=== PATIENT | male | born 2000 | race Caucasian/White ===

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

== ENCOUNTER 2020-03-14 15:01 | Emergency (ER) | payer SELFPAY ==
[2020-03-14 15:07] VITALS: BP 133/76
[2020-03-14] MEDS ORDERED: LIDOCAINE 1% INJ-PF (10 MG/ML) 30 ML SDV INJ ONE (15:15)
--- NOTE | 2020-03-14 15:18 | ER Document Report ---
HPI - HPI Patient complains to provider of: Left knee laceration Time Seen by Provider: 03/14/20 15:08 Context: 19-year-old male with no previous medical problems presents to the emergency room with a laceration to his left knee. States he was playing with a friend an d wanted to see if his friends knife with cut his pants. States while playing with a knife he cut his left knee through 2 layers of clothing cutting his knee. Bleeding is persistent. Tetanus is up-to-date. Associated Symptoms: None Exacerbated by: Movement Relieved by: Remaining still Similar symptoms previously: No Recently seen / treated by doctor: No - ROS Systems Reviewed and Negative: Yes All other systems reviewed and negative - NEURO Neurology: DENIES: Weakness - MUSCULOSKELETAL Musculoskeletal: REPORTS: Extremity pain - DERM Skin Color: Erythema Skin Problems: Laceration Past Medical History - General Information source: Patient - Social History Smoking Status: Current Every Day Smoker Frequency of alcohol use: None Drug Abuse: Marijuana Family History: Reviewed & Not Pertinent Renal/ Medical History: Denies: Hx Peritoneal Dialysis Vertical Provider Document - CONSTITUTIONAL Agree With Documented VS: Yes Exam Limitations: No Limitations General Appearance: Mild Distress - INFECTION CONTROL TRAVEL OUTSIDE OF THE [place] IN LAST 30 DAYS: No - HEENT HEENT: Atraumatic, Normocephalic - NECK Neck: Normal Inspection, Supple, Thyroid Normal - RESPIRATORY Respiratory: Breath Sounds Normal, No Respiratory Distress - CARDIOVASCULAR Cardiovascular: Regular Rate, Regular Rhythm, No Murmur - MUSCULOSKELETAL/EXTREMETIES Musculoskeletal/Extremeties: Tender - Tenderness to the left patella with a 5 cm laceration. Bleeding is persistent. Full range of motion without difficulty or pain. - NEURO Level of Consciousness: Awake, Alert, Appropriate Motor/Sensory: No Motor Deficit, No Sensory Deficit Notes: Positive left pedal pulse. Ambulatory with a steady gait. Neurovascularly intact. - DERM Integumentary: Warm, Dry, Laceration - 5 cm laceration noted to the left knee. Bleeding is persistent. Course - Re-evaluation Re-evalutation: 03/14/20 16:44 Wound was cleansed and sutured as documented. Dressing was applied. Reviewed negative x-ray results with patient. Patient requested crutches. Crutches and crutch training provided by nursing staff as documented. Patient was counseled on proper wound care. Antibiotics as prescribed. Sutures out 8 to 10 days. Patient was given strict return to the emergency room guidelines. Return for any new or worsening symptoms. All questions were answered. Patient verbalized understanding and agrees with plan of care. 03/14/20 17:31 - Vital Signs Vital signs: Temp Pulse Resp BP Pulse Ox 98.1 F 87 16 133/76 H 99 03/14/20 15:05 03/14/20 15:05 03/14/20 15:05 03/14/20 15:05 03/14/20 15:05 - Diagnostic Test Radiology reviewed: Reports reviewed Procedures - Immobilization Left Knee Time completed: 17:15 Pre-Proc Neuro Vasc Exam: Normal Immobilizer type: Crutches Performed by: PCT Post-Proc Neuro Vasc Exam: Normal Alignment checked and good: Yes - Laceration/Wound Repair Left Knee Time completed: 16:43 Wound length (cm): 5 Wound's Depth, Shape: Into muscle, Linear Laceration pre-procedure: Sterile PPE donned, Sterile drapes applied, Shur-Clens applied Anesthetic type: 1% Lidocaine Volume Anesthetic (mLs): 4 Wound explored: Clean, No foreign body removed Wound Repaired With: Sutures Suture Size/Type: 4:0, Ethilon Number of Sutures: 8 Layer Closure?: No Post-procedure wound care: Sterile dressing applied Post-procedure NV exam normal: Yes Complications: No Discharge - Discharge Clinical Impression: Laceration of left knee Qualifiers: Encounter type: initial encounter Qualified Code(s): S81.012A - Laceration without foreign body, left knee, initial encounter Condition: Stable Disposition: HOME, SELF-CARE Instructions: Laceration Care ([facility]), Prophylactic Antibiotic ([facility]) Additional Instructions: Please return to your primary doctor, the ED, or an urgent care in 8-10 days for suture removal. Return immediately if you develop spreading redness around the wound, pus from the wound, worsening pain, or a fever of >100.4. Keep the area clean and dry. Remove dressing in 24 hours. Leave wound open to air as much as possible after removing the dressing. Keep it covered while at work. Prescriptions: Cephalexin Monohydrate [Keflex 500 mg Capsule] 500 mg PO Q8H 10 Days #30 capsule Forms: Return to Work
--- NOTE | 2020-03-14 16:14 | RADIOLOGY REPORT (SQ) ---
EXAM DESCRIPTION: KNEE LEFT 4 VIEW IMAGES COMPLETED DATE/TIME: 03/14/2020 3:40 pm REASON FOR STUDY: injury COMPARISON: None. NUMBER OF VIEWS: Four views. TECHNIQUE: AP, lateral, and both oblique radiographic images acquired of the left knee. LIMITATIONS: External bandage. FINDINGS: MINERALIZATION: Normal. BONES: No acute fracture or dislocation. No worrisome bone lesions. JOINT: No effusion. SOFT TISSUES: No soft tissue swelling. No radio-opaque foreign body. OTHER: No other significant finding. IMPRESSION: NEGATIVE STUDY OF THE LEFT KNEE. NO RADIOGRAPHIC EVIDENCE OF ACUTE INJURY. TECHNICAL DOCUMENTATION: JOB ID: [id number] 2010 [employer]- All Rights Reserved Reading location - IP/workstation name: [email or web address]
== END 2020-03-14 17:20 | disposition home or self-care (01) ==
LOC: ER 15:01
DX: S86.922A Laceration of unspecified muscle(s) and tendon(s) at lower leg level, left leg, initial encounter (principal); S91.012A Laceration without foreign body, left ankle, initial encounter; W26.0XXA Contact with knife, initial encounter; Y93.89 Activity, other specified; F17.200 Nicotine dependence, unspecified, uncomplicated
CPT/HCPCS: 99283

== ENCOUNTER 2020-04-02 11:21 | Emergency (ER) | payer SELFPAY ==
--- NOTE | 2020-04-02 13:09 | ER Document Report ---
HPI - HPI Time Seen by Provider: 04/02/20 12:53 Notes: 19-year-old male presents to the emergency room for evaluation of a laceration that he sustained to his left knee approximately 2 weeks ago. Reports he had sutures placed but he removed the sutures himself. Reports a friend of the family looked at his knee and said it was infected today. Denies any recent injury to his knee. Did receive his last tetanus in the last 5 years. Reports pain is 1 out of 5, dull ache. Has not tried any [id number]-penjcvk medications. Has not tried any heat or icing. Denies any previous injury. Denies fevers, chills, chest pain,palpitations, shortness of breath, weakness, bowel or bladder dysfunction, saddle anesthesia, numbness or tingling in bilateral upper or lower extremities equally, muscle paralysis, weakness in bilateral upper or lower extremities equally or rash. - REPRODUCTIVE Reproductive: DENIES: : Past Medical History - General Information source: Patient - Social History Smoking Status: Unknown if Ever Smoked Family History: Reviewed & Not Pertinent Renal/ Medical History: Denies: Hx Peritoneal Dialysis Vertical Provider Document - CONSTITUTIONAL Agree With Documented VS: Yes Exam Limitations: No Limitations General Appearance: WD/WN Notes: MEDICATIONS: I agree with the patient medications as charted by the RN. ALLERGIES: I agree with the allergies as charted by the RN. PAST MEDICAL HISTORY/PAST SURGICAL HISTORY: Reviewed and agree as charted by RN. SOCIAL HISTORY: Reviewed and agree as charted by RN. FAMILY HISTORY: No significant familial comorbid conditions directly related to patient complaint EXAM: Reviewed vital signs as charted by RN. PHYSICAL EXAMINATION:reviewed vital signs by RN GENERAL: Well-appearing, well-nourished and in no acute distress. HEAD: Atraumatic, normocephalic. EYES: Pupils equal round and reactive to light, extraocular movements intact, sclera anicteric, conjunctiva are normal. ENT: Nares patent, oropharynx clear without exudates. Moist mucous membranes. NECK: Normal range of motion, supple without lymphadenopathy LUNGS: Breath sounds clear to auscultation bilaterally and equal. No wheezes rales or rhonchi. HEART: Regular rate and rhythm without murmurs ABDOMEN: Soft, nontender, nondistended abdomen. No guarding, no rebound. No masses appreciated. Musculoskeletal: Normal range of motion, no pitting or edema. No cyanosis. left knee pain with palpation to patella, where approx 2cm scab is located. negative antony's sign. anterior and posterior drawer test negative. Dtr + 2 in BLE. Full motor and sensory function to BLE equally. No induration or erythema. Strength 5 out of 5 bilaterally equally. Ankle examination normal. Squeeze test negative. Hip examination normal. Pulses + 2 bilaterally and equally.negative squeeze bilaterally and equally. NEUROLOGICAL: Cranial nerves grossly intact. Normal speech, normal gait. Normal sensory, motor exams PSYCH: Normal mood, normal affect. SKIN: Warm, Dry, normal turgor, no rashes or lesions noted. - INFECTION CONTROL TRAVEL OUTSIDE OF THE [place] IN LAST 30 DAYS: No Course - Re-evaluation Re-evalutation: 04/02/20 13:10 Afebrile vital stable no distress. Nurses notes reviewed. X-ray of left knee negative for any acute fracture dislocation, osteomyelitis of foreign body. Discussed with patient that he needs to monitor for any signs of infection such as redness, swelling, drainage. Will place patient on oral antibiotic therapy in an outpatient setting, Keflex twice a day for 5 days. Advised to follow-up with primary care provider within the next 24 to 48 hours. Wash with soap and water at least twice a day or when soiled. After performing a Medical Screening Examination, I estimate there is LOW risk for OPEN FRACTURE, COMPARTMENT SYNDROME, TENDON RUPTURE, ACUTE NEUROVASCULAR INJURY, or RETAINED FOREIGN BODY, thus I consider the discharge disposition reasonable. Also, there is no evidence or peritonitis, sepsis, or toxicity. I have reevaluated this patient multiple times and no significant life threatening changes are noted. The patient and I have discussed the diagnosis and risks, and we agree with discharging home with close follow-up with the understanding that symptoms and presentations can change. We also discussed returning to the Emergency Department immediately if new or worsening symptoms occur. We have discussed the symptoms which are most concerning (e.g., changing or worsening pain, fever, numbness, weakness, cool or painful digits) that necessitate immediate return. - Vital Signs Vital signs: Temp Pulse Resp BP Pulse Ox 98.3 F 66 16 128/66 H 98 04/02/20 11:26 04/02/20 11:26 04/02/20 11:26 04/02/20 11:26 04/02/20 11:26 - Laboratory Results Critical Laboratory Results Reviewed: No Critical Results - Radiology Results Critical Radiology Results Reviewed: No Critical Results Discharge - Discharge Clinical Impression: old laceration with infection Condition: Stable Disposition: HOME, SELF-CARE Instructions: Prophylactic Antibiotic ([facility]) Additional Instructions: Your knee x-ray today is negative for any fracture, dislocation or foreign body. You were placed on antibiotics, please eat before taking these antibiotics and finish the course of them. Apply heat 20 minutes on 20 minutes off several times a day. Please follow-up with your primary care provider within the next 24 to 48 hours. Your tetanus does not need to be updated since you have had it in the last 5 years. Return immediately for any new or worsening symptoms. Follow up with primary care provider, call tomorrow to make followup appointment. Prescriptions: Cephalexin Monohydrate [Keflex 500 mg Capsule] 500 mg PO BID #20 capsule Referrals: TY BELTRAN MD [COMMUNITY BASED STAFF] - Follow up as needed
--- NOTE | 2020-04-02 13:52 | RADIOLOGY REPORT (SQ) ---
EXAM DESCRIPTION: KNEE LEFT 4 VIEW IMAGES COMPLETED DATE/TIME: 04/02/2020 1:34 pm REASON FOR STUDY: left knee pain from old laceration COMPARISON: None. NUMBER OF VIEWS: Four views. TECHNIQUE: AP, lateral, and both oblique radiographic images acquired of the left knee. LIMITATIONS: None. FINDINGS: MINERALIZATION: Normal. BONES: No acute fracture or dislocation. No worrisome bone lesions. JOINT: No effusion. SOFT TISSUES: Prepatellar soft tissue swelling. No opaque foreign bodies. OTHER: No other significant finding. IMPRESSION: 1. No acute osseous findings. 2. Prepatellar soft tissue swelling. TECHNICAL DOCUMENTATION: JOB ID: [id number] 2010 [employer]- All Rights Reserved Reading location - IP/workstation name: [email or web address]
[2020-04-02 14:39] VITALS: BP 123/74
== END 2020-04-02 14:37 | disposition home or self-care (01) ==
LOC: ER 11:21
DX: S81.012A Laceration without foreign body, left knee, initial encounter (principal); L08.9 Local infection of the skin and subcutaneous tissue, unspecified; X58.XXXA Exposure to other specified factors, initial encounter
CPT/HCPCS: 99283